=== PATIENT | female | born 1975 | race Caucasian/White ===

== ENCOUNTER 2018-09-11 10:48 | Emergency (ER) | payer OTHER ==
[~2018-09-11] VITALS: Ht 175.3 cm; Wt 120.2 kg
[2018-09-11 11:34] LABS: ABSOLUTE BASOPHILS 0.1 thou/uL (0.0-0.2); ABSOLUTE EOSINOPHILS 0.1 thou/uL (0.0-0.7); ABSOLUTE LYMPHOCYTES 1.5 thou/uL (0.8-5.3); ABSOLUTE MONOCYTES 0.4 thou/uL (0.0-1.2); ABSOLUTE NEUTROPHILS 4.2 thou/uL (1.6-8.1); EOSINOPHILS 2.2 %; HEMATOCRIT 34.8 % (37.0-47.0); HEMOGLOBIN 11.5 gm/dL (12.0-15.0); LYMPHOCYTES 23.1 %; MCH 27.2 pg (26.0-34.0); MCHC 33.1 g/dL (28.0-37.0); MCV 82.2 fL (80.0-100.0); MONOCYTES 6.6 %; MPV 9.4 fl. (7.2-11.1); NUCLEATED RBCS 0 /100WBC; PLATELET COUNT* 251 thou/uL (150-400); POLYS 67.1 %; RBC 4.23 mil/uL (4.20-5.00); RDW-CV 14.9 % (10.5-14.5); WBC 6.3 thou/uL (4.0-11.0)
[2018-09-11 11:45] LABS: APTT 27.6 Seconds (25.0-31.3); PROTIME 9.8 Seconds (9.20-11.50)
[2018-09-11 12:00] LABS: ALBUMIN 3.7 g/dL (3.4-5.0); ALKALINE PHOSPHATASE 74 U/L (46-116); ANION GAP 7 mmol/L (7-16); BUN 10 mg/dL (7-18); CALCIUM 8.7 mg/dL (8.5-10.1); CHLORIDE 105 mmol/L (98-107); CO2 26 mmol/L (21-32); CREATININE 0.8 mg/dL (0.6-1.3); GLUCOSE 103 mg/dL (70-99); POTASSIUM 3.9 mmol/L (3.5-5.1); SGOT 15 U/L (15-37); SGPT 23 U/L (30-65); SODIUM 138 mmol/L (136-145); TOTAL BILIRUBIN 0.1 mg/dL (<0.1-1.0); TOTAL PROTEIN 6.8 g/dL (6.4-8.2); TROPONIN-I LEVEL <0.06 ng/mL (<0.06)
[2018-09-11 12:22] LABS: URINE BILIRUBIN NEGATIVE (Negative); URINE BLOOD 3+ (Negative); URINE CLARITY CLEAR; URINE COLOR YELLOW; URINE GLUCOSE-RANDOM NEGATIVE (Negative); URINE KETONES NEGATIVE (Negative); URINE LEUKOCYTES-REFLEX NEGATIVE (Negative); URINE NITRITE-REFLEX NEGATIVE (Negative); URINE PROTEIN NEGATIVE (Negative); URINE SPECIFIC GRAVITY >= 1.030 (1.005-1.030); URINE UROBILINOGEN 0.2 E.U./dl (0.2-1.0)
[2018-09-11 12:41] LABS: AMP/METHAMP Negative (Negative); BARBITURATES Negative (Negative); BENZODIAZEPINES Negative (Negative); COCAINE Negative (Negative); METHADONE Negative (Negative); OPIATES Negative (Negative); PCP Negative (Negative); THC Negative (Negative)
[2018-09-11 12:57] LABS: SQUAMOUS >10 Many /LPF (0-3)
[2018-09-11 12:58] LABS: URINE WBC-REFLEX 0-5 Rare /HPF (0-5)
[2018-09-11 13:02] LABS: URINE RBC 0-2 Rare /HPF (0-2)
[2018-09-11 13:03] LABS: CASTS None Seen /LPF (None Seen); CRYSTALS None Seen /LPF (None Seen); MUCUS >6 Heavy strn/LPF (None Seen)
[2018-09-11 13:04] VITALS: BP 135/82
--- NOTE | 2018-09-11 14:42 | EKG ---
[place] [address] ELECTROCARDIOGRAM REPORT Name: REJI CHRIS Room: [facility]#: [id number] Admission: 09/11/18 Attend Phys: Discharge: 09/11/18 Date of : 75 Report #: [id number] THIS REPORT FOR: //name// [facility] ED Test Date: 2018-09-11 Test Time: 11:24:11 Pat Name: REJI CHRIS Department: Room: Gender: F Criminal Attorney: : 1975 Requested By: Suly Noyola Order Number: [id number] MD: Colby Ventura Measurements Intervals Moran Rate: 83 P: 48 WV: 145 QRS: 38 QRSD: 93 T: 16 QT: 391 QTc: 460 Interpretive Statements Sinus rhythm No previous ECG available for comparison Electronically Signed On 09-11-2018 14:42:17 CDT by Colby Ventura [email or web address] <ELECTRONICALLY SIGNED> By: Colby Ventura MD, [facility] 09/11/18 [id number] [id number] Colby Ventura MD, FACC /EPI
== END 2018-09-11 13:04 | disposition home or self-care (01) ==
LOC: M.ERS 10:48
PROVIDERS: Physician Assistant
DX: M25.561 Pain in right knee (principal); R42 Dizziness and giddiness; Z88.8 Allergy status to other drugs, medicaments and biological substances; W10.9XXA Fall (on) (from) unspecified stairs and steps, initial encounter; Y93.89 Activity, other specified; Y92.89 Other specified places as the place of occurrence of the external cause; Y99.8 Other external cause status